=== PATIENT | female | born 1970 | race Two or more races ===

== ENCOUNTER 2020-10-13 00:18 | Emergency (ER) | payer SELFPAY ==
[~2020-10-13] VITALS: Ht 172.7 cm; Wt 70.0 kg
[2020-10-13 01:00] LABS: BASO % 0 % (0-3); EOS % 0 % (0-3); HEMATOCRIT 39.7 % (36.0-47.0); HEMOGLOBIN 13.7 g/dL (12.0-15.5); LYMPH # 0.9 x10^3/uL (1.0-4.8); LYMPH % 15 % (24-48); MEAN CORPUSCULAR HEMOGLOBIN 31 pg (25-35); MEAN CORPUSCULAR HGB CONC 35 g/dL (31-37); MEAN CORPUSCULAR VOLUME 90 fL (79-100); MONO # 0.1 x10^3/uL (0.0-1.1); MONO % 2 % (0-9); NEUT # 5.1 x10^3/uL (1.8-7.7); NEUT % 83 % (31-73); PLATELET COUNT 111 x10^3/uL (140-400); RED BLOOD COUNT 4.39 x10^6/uL (3.50-5.40); RED CELL DISTRIBUTION WIDTH 12.9 % (11.5-14.5); WHITE BLOOD COUNT 6.2 x10^3/uL (4.0-11.0)
--- NOTE | 2020-10-13 01:04 | RAD ---
XR CHEST 1V INDICATION: cough, fever, soa, COVID-19 INFECTION SINCE 10/04/20 / [facility]. Instructions: / History: . COMPARISON STUDY: None. FINDINGS: Lungs: Normal lung volume. Patchy bilateral opacities. Pleura: No pleural effusion or pneumothorax. Heart and Mediastinum: The cardiomediastinal silhouette is normal. The great vessels of the thorax ar e normal. IMPRESSION: Patchy bilateral opacities, consistent with patient's history of infection. Electronically signed by: Demetris Simeon MD (10/13/2020 1:02 AM) [facility]
[2020-10-13 01:11] LABS: CALCIUM 8.6 mg/dL (8.5-10.1); CREATININE 0.9 mg/dL (0.6-1.0); POTASSIUM 3.8 mmol/L (3.5-5.1)
[2020-10-13] MEDS ORDERED: methylPREDNISolone SOD SUCC PF 125 MG/2 ML VIAL. IV ONE (01:15)
--- NOTE | 2020-10-13 01:15 | PHYS DOC ---
Past Medical History Past Medical History: No Pertinent History Past Surgical History: Smoking Status: Never Smoker Alcohol Use: None General Adult EDM: Chief Complaint: SHORTNESS OF BREATH HPI: HPI: Patient is a 50-year-old female who present to ER due to cough. Patient has been sick with cough for about 12 days, she was tested positive for COVID-19 on October 04. Patient has been having fever, she has been taken Tylenol and Motrin alternatively. The fever has subsided but she continues to cough so she came here for evaluation. Patient had no history of diabetic, hypertension, she had no history of COPD, no history of asthma. Patient is not a smoker. Patient had no history of coronary artery disease. Her whole family are infected with COVID-19. Patient is not vaccinated for COVID-19. Patient is not on oxygen at home Review of Systems: Review of Systems: Constitutional: Denies fever or chills. [] Eyes: Denies change in visual acuity. [] HENT: Denies nasal congestion or sore throat. [] Respiratory: Positive for cough and trouble breathing Cardiovascular: Denies chest pain or edema. [] GI: Denies abdominal pain, nausea, vomiting, bloody stools or diarrhea. [] : Denies dysuria. [] Musculoskeletal: Denies back pain or joint pain. [] Integument: Denies rash. [] Neurologic: Denies headache, focal weakness or sensory changes. [] Endocrine: Denies polyuria or polydipsia. [] Lymphatic: Denies swollen glands. [] Psychiatric: Denies depression or anxiety. [] Heart Score: C/O Chest Pain: N/A Risk Factors: Risk Factors: DM, Current or recent (<one month) smoker, HTN, HLP, family history of CAD, obesity. Risk Scores: Score 0 - 3: 2.5% MACE over next 6 weeks - Discharge Home Score 4 - 6: 20.3% MACE over next 6 weeks - Admit for Clinical Observation Score 7 - 10: 72.7% MACE over next 6 weeks - Early Invasive Strategies Allergies: Allergies: Allergies Coded Allergies Type Severity Reaction Last Updated Verified ibuprofen Allergy Unknown 10/13/20 Yes Physical Exam: PE: Constitutional: Well developed, well nourished, no acute distress, non-toxic appearance. [] HENT: Normocephalic, atraumatic, bilateral external ears normal, oropharynx moist, no oral exudates, nose normal. [] Eyes: PERRLA, EOMI, conjunctiva normal, no discharge. [] Neck: Normal range of motion, no tenderness, supple, no stridor. [] Cardiovascular:Heart rate regular rhythm, no murmur [] Lungs & Thorax: Bilateral breath sounds with crackles bilateral to auscultation, no respiratory distress Abdomen: Bowel sounds normal, soft, no tenderness, no masses, no pulsatile masses. [] Skin: Warm, dry, no erythema, no rash. [] Back: No tenderness, no CVA tenderness. [] Extremities: No tenderness, no cyanosis, no clubbing, ROM intact, no edema. [] Neurologic: Alert and oriented X 3, normal motor function, normal sensory function, no focal deficits noted. [] Psychologic: Affect normal, judgement normal, mood normal. [] Current Patient Data: Labs: Laboratory Tests Test 10/13/20 00:45 Sodium Level 138 mmol/L (136-145) Potassium Level 3.8 mmol/L (3.5-5.1) Chloride Level 101 mmol/L (98-107) Carbon Dioxide Level 25 mmol/L (21-32) Anion Gap 12 (6-14) Blood Urea Nitrogen 15 mg/dL (7-20) Creatinine 0.9 mg/dL (0.6-1.0) Estimated GFR (Cockcroft-Gault) 66.0 BUN/Creatinine Ratio 17 (6-20) Glucose Level 107 mg/dL (70-99) H Calcium Level 8.6 mg/dL (8.5-10.1) Magnesium Level Pending Total Bilirubin Pending Aspartate Amino Transferase (AST) Pending Alanine Aminotransferase (ALT) Pending Alkaline Phosphatase Pending Total Protein Pending Albumin Pending Albumin/Globulin Ratio Pending Laboratory Tests 10/13/20 00:45 Vital Signs: Vital Signs Date Time Temp Pulse Resp B/P (MAP) Pulse Ox O2 Delivery O2 Flow Rate FiO2 10/13/20 00:40 98.8 90 20 95 Room Air 98.8 EKG: EKG: [] Radiology/Procedures: Radiology/Procedures: [][facility] [address] [place] [address] IMAGING REPORT Signed PATIENT: BRENDA CISNEROSCCOUNT: [id number] : 1970 LOCATION: ER AGE: 50 SEX: F EXAM STATUS: REG ER ORD. PHYSICIAN: VIRGIE VERGARA DO REASON: cough, fever, soa, COVID-19 INFECTION SINCE 10/04/20 PROCEDURE: CHEST AP ONLY XR CHEST 1V INDICATION: cough, fever, soa, COVID-19 INFECTION SINCE 10/04/20 / [facility]. Instructions: / History: . COMPARISON STUDY: None. FINDINGS: Lungs: Normal lung volume. Patchy bilateral opacities. Pleura: No pleural effusion or pneumothorax. Heart and Mediastinum: The cardiomediastinal silhouette is normal. The great vessels of the thorax are normal. IMPRESSION: Patchy bilateral opacities, consistent with patient's history of infection. Electronically signed by: Vero Simeon MD (10/13/2020 1:02 AM) [facility] DICTATED and SIGNED BY: VERO SIMEON MD DATE: 10/13/20 [id number] 0 Course & Med Decision Making: Course & Med Decision Making Pertinent Labs and Imaging studies reviewed. (See chart for details) Patient is a 50-year-old female with COVID-19 pneumonia, vital signs stable in the ER, she was in no acute distress. Her oxygen saturation was 95 to 97% on room air. Patient will be discharged home with doxycycline, prednisone and albuterol inhaler. Patient was instructed to follow-up with her doctor for reevaluation next week. She was instructed to return to ER if she had trouble breathing or her symptoms get worse. Patient was amenable to plan of care for Drag Disclaimer: Dragon Disclaimer: This electronic medical record was generated, in whole or in part, using a voice recognition dictation system. Departure Departure Impression: Primary Impression: Pneumonia due to COVID-19 virus Disposition: HOME / SELF CARE / HOMELESS Condition: STABLE Referrals: UNKNOWN PCP NAME (PCP) Follow up with your doctor as needed this week. Patient Instructions: Viral Syndrome Additional Instructions: Definicin Se le realiz la prueba de deteccin del COVID-19 o se le diagnostic dicha enfermedad. Es jose infeccin ocasionada por un nuevo tipo de coronavirus. En la mayora de los casos, el COVID-19 provoca sntomas similares a los del resfriado. En algunas personas, puede ocasionar sntomas ms graves, gi problemas respiratorios. No existe un tratamiento para el virus COVID-19. El cuerpo elimina la infeccin con el tiempo. El cuidado personal ayuda a aliviar el malestar. Pasos que debe seguir 1. Cuidados personales Descanse cuando sea necesario. Los hbitos saludables pueden ayudarlo a sentirse mejor. Algunas medidas para lograr cambios incluyen lo siguiente: - Elija alimentos saludables, gi frutas y verduras. Homa abundante cantidad de agua steven todo el da. - Duerma serg por la noche. - Si fuma, intente no hacerlo. [place] ayudar a mejorar la respiracin. - Evite el alcohol. 2. Mantenga sanos a los dems El virus puede contagiarse a otras personas. Cada vez que estornuda o tose, se liberan gotitas. Las gotitas pueden entrar en la boca, la nariz o los ojos de las personas que se encuentran cerca de usted y ocasionar la infeccin. Para reducir las probabilidades de contagiar el virus COVID-19 a otros, tenga en cuenta lo siguiente: - Qudese en casa el tiempo que el mdico se lo indique. Es posible que deba quedarse en casa hasta que la enfermedad desaparezca. Salga nicamente para recibir atencin mdica o en nathan de urgencia. - Evite las reas pblicas, los eventos o el transporte pblico. No reanude las actividades laborales o escolares hasta que el mdico lo autorice. - Llame previamente si necesita asistir a un centro mdico. Avise que es posible que haya contrado COVID-19. [place] ayudar a que le indiquen adonde debe dirigirse. Jessy pueden pedirle que use jose mscara facial cuando vaya al consultorio. Si llama a los servicios de asistencia mdica de urgencias, avseles que es posible que haya contrado COVID-19. Mientras est en casa: - Evite el contacto directo con otras personas. Mantngase a jose distancia aproximada de 2 metros. Si es posible, pasen la mayor parte del tiempo en turner separadas. - Use jose mscara facial si estar en contacto directo con otras personas, por ejemplo, si compartir jose habitacin o un vehculo. - Pida a alguien que limpie las superficies comunes de la casa. Limpie picaportes, mesadas y lavamanos con limpiadores domsticos todos los willson. - Al toser o estornudar, cbrase con un pauelo de papel. Despus de usarlo, deschelo de inmediato. Si no tiene un pauelo de papel, tosa o estornude en el pliegue del codo. - Lvese las fernando con frecuencia. Lvese las fernando despus de estornudar o toser. Lvese con agua y jabn steven, al menos, 20 segundos. Si no dispone de agua y jabn, use un limpiador de fernando a base de alcohol. - No cocine para otros. Evite compartir objetos personales, gi tenedores, cucharas o cepillos de dientes. - Mientras est enfermo, evite el contacto directo con las mascotas. No hay indicios de si el virus se transmite a las mascotas. Esta es jose medida de seguridad que debe tenerse en cuenta hasta que se sepa ms acerca de seema virus. El aislamiento puede ser frustrante. La interaccin social puede ayudar. Mantng ase en contacto con amigos y familiares por telfono u otros medios tecnolgicos. Puede interactuar con otras personas en el [facility], filomena mantenga jose distancia hunter de aproximadamente 2 metros. Seguimiento Las pruebas para confirmar la presencia del COVID-19 pueden demorar algunos willson. Es posible que deba seguir los pasos mencionados anteriormente hasta que estn los resultados de las pruebas. Lo llamarn del consultorio mdico para saber si goldsmith habido algn cambio en basurto gianna. Tambin le avisarn cuando pueda volver a estar cerca de otras personas. Problemas a los que debe estar atento Comunquese con el mdico si no se recupera segn lo previsto o si tiene problemas gi los siguientes: - Dificultad para respirar - Dolor de pecho - Empeoramiento de los sntomas Si moreno que tiene jose urgencia, llame a los servicios de asistencia mdica de urgencias de inmediato. As taken from [facility] [facility] Albuterol Sulfate (PROAIR HFA INHALER) 8.5 Gm Hfa.aer.ad 2 PUFF IH PRN Q4-6HRS PRN for shortness of air for 21 Days, #1 INHALER 0 Refills Prov: VIRGIE VERGARA DO 10/13/20 Doxycycline Hyclate (DOXYCYCLINE HYCLATE) 100 Mg Capsule 1 CAP PO BID for 10 Days, #20 CAP Prov: VIRGIE VERGARA DO 10/13/20 Prednisone (PREDNISONE) 20 Mg Tablet 1 TAB PO DAILY for 10 Days, #10 TAB Prov: VIRGIE VERGARA DO 10/13/20 VIRGIE VERGARA DO Oct 13, 2020 01:15
[2020-10-13 01:17] LABS: ALBUMIN 3.4 g/dL (3.4-5.0); ALBUMIN/GLOBULIN RATIO 0.8 (1.0-1.7); TOTAL BILIRUBIN 0.3 mg/dL (0.2-1.0); TOTAL PROTEIN 7.9 g/dL (6.4-8.2)
[2020-10-13 02:07] VITALS: BP 112/73
[2020-10-13] MEDS ORDERED: PRED20TA PO (02:15)
[2020-10-13] MEDS ORDERED: ALBU2.5V8 IH (02:15)
[2020-10-13] MEDS ORDERED: DOXY100C2 PO (02:15)
[2020-10-13] MEDS ORDERED: HYDROcodone/APAP 5/325MG 1 TAB TABLET PO ONE (02:15)
== END 2020-10-13 02:30 | disposition home or self-care (01) ==
LOC: ER 00:18
DX: U07.1 COVID-19 (principal); J12.82 Pneumonia due to coronavirus disease 2019; E11.9 Type 2 diabetes mellitus without complications; I10 Essential (primary) hypertension; Z88.8 Allergy status to other drugs, medicaments and biological substances
CPT/HCPCS: 36415; 71045; 80053; 83605; 83735; 85025; 87040; 96374; 99285; J2930